=== PATIENT | male | born 2000 | race Caucasian/White ===

== ENCOUNTER 2022-07-07 12:46 | Emergency (ER) | payer BC ==
[~2022-07-07] VITALS: Ht 172.7 cm; Wt 104.3 kg
--- NOTE | 2022-07-07 12:50 | NUR ---
Placed in room TENT . Placed on laboratory monitor, blood pressure machine and pulse oximeter. To gown for exam. Side rails up.
[2022-07-07 12:56] VITALS: BP_SYST 129
--- NOTE | 2022-07-07 13:00 | NUR ---
ER DR. BREEN EXAMINING PT
[2022-07-07] MEDS ORDERED: D-ME118S48 PO (13:17)
[2022-07-07] MEDS ORDERED: ZIT250 PO (13:17)
[2022-07-07] MEDS ORDERED: PRED50TA PO (13:17)
[2022-07-07 13:29] VITALS: BP_SYST 129
--- NOTE | 2022-07-07 13:29 | NUR ---
Patient given written and verbal discharge instructions and verbalizes understanding. ER MD discussed with patient the results and treatment provided. Patient in stable condition. ID arm band removed. IV catheter removed intact and dressing applied, no active bleeding. Rx of BROMFED DM COUGH SYRUP, PREDNISONE AND ZITHROMAX given. Patient educated on pain management and to follow up with PMD. Pain Scale 0/10. Opportunity for questions provided and answered. Medication side effect fact sheet provided.
== END 2022-07-07 13:29 | disposition home or self-care (01) ==
LOC: SED 12:46
DX: J40 Bronchitis, not specified as acute or chronic (principal); R05.9 Cough, unspecified; R11.10 Vomiting, unspecified; Z79.899 Other long term (current) drug therapy
CPT/HCPCS: 99283